=== PATIENT | female | born 1940 | race Caucasian/White ===

== ENCOUNTER 2021-12-06 19:42 | Inpatient (IN) | payer MEDICARE, MEDICAID ==
[~2021-12-06] VITALS: Ht 157.5 cm; Wt 111.4 kg
[2021-12-06] MEDS ORDERED: morphine 4 MG/ML inj SYRINge IV ONE (21:30)
[2021-12-06] MEDS ORDERED: EXEN2AUT SQ (22:31)
[2021-12-06] MEDS ORDERED: OMEP20CA16 PO (22:31)
[2021-12-06] MEDS ORDERED: SITA100T11 PO (22:31)
[2021-12-06] MEDS ORDERED: SIMV40TA PO (22:31)
[2021-12-06] MEDS ORDERED: MELA3TAB39 PO (22:31)
[2021-12-06] MEDS ORDERED: DULO-31 PO (22:31)
[2021-12-06] MEDS ORDERED: FURO40TA4 PO (22:31)
[2021-12-06] MEDS ORDERED: POTA10TA37 PO (22:31)
[2021-12-06] MEDS ORDERED: VALS80TA32 PO (22:31)
[2021-12-06] MEDS ORDERED: CARV25TA2 PO (22:31)
[2021-12-06] MEDS ORDERED: GABA-530 PO (22:31)
[2021-12-06] MEDS ORDERED: INSU100I31 SQ (22:31)
--- NOTE | 2021-12-06 22:44 | NUR ---
Spoke to son, AJ, and updates given. Phone number is [phone].
[2021-12-06] MEDS ORDERED: dextrose ORAL solution 15 GM/59 ML bottle PO PRN ×2 (22:55)
[2021-12-06] MEDS ORDERED: MESSAGE TO PHARMACY PO ONE (22:55)
[2021-12-06] MEDS ORDERED: glucagon, human recombinant 1mg kit SUBCUT PRN (22:55)
[2021-12-06] MEDS ORDERED: dextrose 50%-water 50ml dispensing syringe IV PRN ×2 (22:55)
[2021-12-06] MEDS ORDERED: magnesium hydroxide 30ml (MOM) UD suspension PO PRN (23:30)
[2021-12-06] MEDS ORDERED: bisacodyl 10mg suppository rectal RC PRN (23:30)
[2021-12-06] MEDS ORDERED: diphenhydrAMINE 50 mg/ml inj IV PRN (23:30)
[2021-12-06] MEDS ORDERED: acetaminophen 650mg rectal suppository RC PRN (23:30)
[2021-12-06] MEDS ORDERED: ondansetron/PF 4mg/2ml inj IV PRN (23:30)
[2021-12-06] MEDS ORDERED: mag hydrox/Alum hydrox/simeth 30ml oral suspension PO PRN (23:30)
[2021-12-06] MEDS ORDERED: Melatonin 3mg tablet PO PRN (23:30)
[2021-12-06] MEDS ORDERED: ondansetron 4mg rapidly disintigrating tab PO PRN (23:30)
[2021-12-06] MEDS ORDERED: diphenhydrAMINE 25mg capsule PO PRN (23:30)
[2021-12-06] MEDS ORDERED: acetaminophen 325mg tablet PO PRN ×2 (23:30)
[2021-12-06 23:50] LABS: BASOPHILS % (AUTO) 0.2 % (0-1); EOSINOPHILS % (AUTO) 0.2 % (0-6); HEMATOCRIT 43.3 % (35.0-45.0); LYMPHOCYTES # (AUTO) 2.5 X10'3 (1.1-4.8); LYMPHOCYTES % (AUTO) 13.5 % (21-51); MEAN CORPUSCULAR HEMOGLOBIN 27.8 PG (27.0-31.0); MEAN CORPUSCULAR HGB CONC 32.3 g/dL (33.0-36.5); MEAN CORPUSCULAR VOLUME 86.2 FL (78-98); MEAN PLATELET VOLUME 7.9 FL (7.4-10.4); MONOCYTES # (AUTO) 1.5 X10'3 (0-0.9); MONOCYTES % (AUTO) 8.5 % (2-12); NEUTROPHILS # (AUTO) 14.2 X10'3 (1.8-7.7); NEUTROPHILS % (AUTO) 77.6 % (42-75); PLATELET COUNT 162 X10'3 (140-440); RED BLOOD COUNT 5.03 X10'6 (4.20-5.60); RED CELL DISTRIBUTION WIDTH 14.4 % (11.5-14.5); WHITE BLOOD COUNT 18.3 X10'3 (4.5-11.0)
[2021-12-06 23:53] LABS: APTT 27 SECONDS (22-32)
[2021-12-06] MEDS: normal saline 1000ml 1,000 ML IV SCH (23:59)
[2021-12-07] VITALS (7 sets, daily range): BP systolic 91–151; BP diastolic 43–71
[2021-12-07 00:04] LABS: MAGNESIUM 1.8 MG/DL (1.5-2.4); PHOSPHORUS 4.5 MG/DL (2.3-4.5)
--- NOTE | 2021-12-07 00:35 | NUR ---
PT ARRIVED FROM ER. PT HAS BEEN ORIENTED TO THE ROOM. VSS. RECEIVED RERP Addendum: 12/07/21 at 0636 by Cassie Singh RN RECEIVED REPORT FROM PEDRO ADORNO PRIOR TO PT'S ARRIVAL. ILL KEEP HER NPO IN CASE OF SURGERY.
--- NOTE | 2021-12-07 00:59 | NUR ---
Tried to contact son AJ to notify of admit and room. Son did not answer.
[2021-12-07] MEDS: heparin, porcine 5000 units/ml vial SQ SCH ×4 (01:46→23:58)
--- NOTE | 2021-12-07 06:12 | NUR ---
Problems reprioritized. Patient report given, questions answered & plan of care reviewed with PEDRO MCGUIRE.
[2021-12-07 06:48] LABS: BASOPHILS # (AUTO) 0.1 X10'3 (0-0.2); BASOPHILS % (AUTO) 0.3 % (0-1); EOSINOPHILS % (AUTO) 0.2 % (0-6); HEMATOCRIT 39.6 % (35.0-45.0); HEMOGLOBIN 12.8 g/dl (12.0-16.0); LYMPHOCYTES # (AUTO) 2.5 X10'3 (1.1-4.8); LYMPHOCYTES % (AUTO) 14.3 % (21-51); MEAN CORPUSCULAR HEMOGLOBIN 28.1 PG (27.0-31.0); MEAN CORPUSCULAR HGB CONC 32.4 g/dL (33.0-36.5); MEAN CORPUSCULAR VOLUME 86.8 FL (78-98); MEAN PLATELET VOLUME 7.9 FL (7.4-10.4); MONOCYTES # (AUTO) 1.5 X10'3 (0-0.9); MONOCYTES % (AUTO) 8.6 % (2-12); NEUTROPHILS # (AUTO) 13.5 X10'3 (1.8-7.7); NEUTROPHILS % (AUTO) 76.6 % (42-75); PLATELET COUNT 160 X10'3 (140-440); RED BLOOD COUNT 4.56 X10'6 (4.20-5.60); RED CELL DISTRIBUTION WIDTH 14.3 % (11.5-14.5); WHITE BLOOD COUNT 17.6 X10'3 (4.5-11.0)
[2021-12-07 07:27] LABS: ALANINE AMINOTRANSFERASE 16 U/L (12-78); ALBUMIN 2.6 G/DL (3.4-5.0); ALBUMIN/GLOBULIN RATIO 0.8 (1.1-1.5); ALKALINE PHOSPHATASE 72 IU/L (46-116); ANION GAP 5 (8-16); ASPARTATE AMINO TRANSFERASE 14 U/L (10-37); BILIRUBIN,TOTAL 0.4 MG/DL (0.1-1.0); BLOOD UREA NITROGEN 24 MG/DL (7-18); BUN/CREATININE RATIO 18.5 (6.6-38.0); CALCIUM 8.3 MG/DL (8.5-10.1); CHLORIDE 107 MMOL/L (99-107); CHOL/HDL RATIO 2.8 (0.00-4.99); CHOLESTEROL 114 MG/DL (0-200); GLUCOSE 151 MG/DL (70-104); HDL CHOLESTEROL 41 MG/DL (35-60); LDL CHOLESTEROL 50 MG/DL (50-100); POTASSIUM 4.7 MMOL/L (3.5-5.1); SODIUM 143 MMOL/L (135-145); TOTAL CARBON DIOXIDE 30.7 MMOL/L (24-32); TOTAL PROTEIN 5.7 G/DL (6.4-8.2); TRIGLYCERIDES 103 MG/DL (20-135); eGFR 40 ML/MIN
[2021-12-07] MEDS: pantoprazole 40mg Tablet.DR PO SCH (07:55)
[2021-12-07] MEDS: docusate sod 100mg capsule PO SCH ×2 (07:55→20:00)
[2021-12-07] MEDS: duloxetine 30mg CAPSULE.DR PO SCH (07:56)
[2021-12-07] MEDS: carVEDilol 12.5mg tablet PO SCH ×2 (07:56→19:38)
[2021-12-07] MEDS: gabapentin 100mg capsule PO SCH ×2 (07:56→19:38)
[2021-12-07] MEDS: morphine 4 MG/ML inj SYRINge IV PRN ×2 (09:12→19:38)
[2021-12-07] MEDS: CefTRIAXone/D5W-Rocephin 1gm 50 ML IV SCH (09:50)
[2021-12-07] MEDS: insulin Lispro (HumaLOG) vial - multi-dose SQ SCH ×2 (12:45→19:18)
--- NOTE | 2021-12-07 14:32 | NUR ---
Diabetes consult: Noted pt w/ hx of T2DM, A1c 8.7. Written DM ed w/ RD contact info placed in pt chart. Addendum: 12/07/21 at [address] Amended: Links added.
[2021-12-07 15:51] LABS: CLARITY,URINE SLIGHTLY CLOUDY (Clear); COLOR,URINE YELLOW (Yellow); GLUCOSE, URINE NEGATIVE (Neg); KETONES,URINE NEGATIVE (Neg); LEUKOCYTE ESTERASE ,URINE NEGATIVE (Neg); NITRITES, URINE NEGATIVE (Neg); OCCULT BLOOD,URINE MODERATE (Neg); PROTEIN,URINE TRACE mg/dl (Neg); UROBILINOGEN,URINE 0.2 E.U/dL (0.2-1.0)
[2021-12-07 15:55] LABS: UA COLLECTION TYPE NON-SPECIFIED
[2021-12-07 15:57] LABS: WBC,URINE 50-100 /HPF (0-4)
[2021-12-07 15:58] LABS: BACTERIA,URINE 3+ /HPF (Neg); CELLULAR CAST 0-4 /LPF (NEGATIVE); MUCUS STRANDS NONE SEEN /LPF (Neg)
[2021-12-07 15:59] LABS: FINE GRANULAR CAST 0-3 /LPF (NEGATIVE)
[2021-12-07 16:01] LABS: SQUAMOUS EPITHELIAL CELL,UR MANY /LPF (FEW)
--- NOTE | 2021-12-07 18:15 | NUR ---
Patient in room PCU 3013A. I have received report from PEDRO Craven and had the opportunity to ask questions and assume patient care.
[2021-12-07] MEDS: normal saline 1000ml 1,000 ML IV SCH (19:37)
[2021-12-07] MEDS ORDERED: atorvastatin 20mg tablet PO SCH (21:00)
[2021-12-07] MEDS: temazepam 15mg capsule PO PRN (21:11)
[2021-12-07] MEDS: atorvastatin 20mg tablet PO SCH (21:11)
[2021-12-07] MEDS: insulin glargine (Lantus) pen - multi-dose SQ SCH (21:13)
[2021-12-08] VITALS (17 sets, daily range): BP systolic 85–133; BP diastolic 24–97
[2021-12-08] MEDS: normal saline 1000ml 1,000 ML IV SCH ×5 (04:05→20:48)
--- NOTE | 2021-12-08 06:26 | NUR ---
Problems reprioritized. Patient report given, questions answered & plan of care reviewed with PEDRO Ji.
[2021-12-08] MEDS: pantoprazole 40mg Tablet.DR PO SCH (07:30)
[2021-12-08 07:48] LABS: BASOPHILS # (AUTO) 0.1 X10'3 (0-0.2); BASOPHILS % (AUTO) 0.5 % (0-1); EOSINOPHILS # (AUTO) 0.2 X10'3 (0-0.9); EOSINOPHILS % (AUTO) 1.4 % (0-6); HEMATOCRIT 35.3 % (35.0-45.0); HEMOGLOBIN 11.4 g/dl (12.0-16.0); LYMPHOCYTES # (AUTO) 2.7 X10'3 (1.1-4.8); LYMPHOCYTES % (AUTO) 19.3 % (21-51); MEAN CORPUSCULAR HEMOGLOBIN 27.9 PG (27.0-31.0); MEAN CORPUSCULAR HGB CONC 32.2 g/dL (33.0-36.5); MEAN CORPUSCULAR VOLUME 86.8 FL (78-98); MEAN PLATELET VOLUME 7.7 FL (7.4-10.4); MONOCYTES # (AUTO) 1.6 X10'3 (0-0.9); MONOCYTES % (AUTO) 11.4 % (2-12); NEUTROPHILS # (AUTO) 9.3 X10'3 (1.8-7.7); NEUTROPHILS % (AUTO) 67.4 % (42-75); PLATELET COUNT 144 X10'3 (140-440); RED BLOOD COUNT 4.07 X10'6 (4.20-5.60); RED CELL DISTRIBUTION WIDTH 14.4 % (11.5-14.5); WHITE BLOOD COUNT 13.8 X10'3 (4.5-11.0)
[2021-12-08] MEDS: duloxetine 30mg CAPSULE.DR PO SCH (08:00)
[2021-12-08] MEDS: gabapentin 100mg capsule PO SCH ×2 (08:00→19:17)
[2021-12-08] MEDS: docusate sod 100mg capsule PO SCH ×2 (08:00→19:17)
[2021-12-08] MEDS: heparin, porcine 5000 units/ml vial SQ SCH ×3 (08:00→18:15)
[2021-12-08 08:40] LABS: ALANINE AMINOTRANSFERASE 12 U/L (12-78); ALBUMIN 2.2 G/DL (3.4-5.0); ALBUMIN/GLOBULIN RATIO 0.8 (1.1-1.5); ALKALINE PHOSPHATASE 67 IU/L (46-116); ANION GAP 9 (8-16); ASPARTATE AMINO TRANSFERASE 18 U/L (10-37); BILIRUBIN,TOTAL 0.3 MG/DL (0.1-1.0); BLOOD UREA NITROGEN 34 MG/DL (7-18); BUN/CREATININE RATIO 16.9 (6.6-38.0); CALCIUM 8.1 MG/DL (8.5-10.1); CHLORIDE 102 MMOL/L (99-107); CREATININE 2.01 MG/DL (0.40-0.90); GLUCOSE 138 MG/DL (70-104); SODIUM 136 MMOL/L (135-145); TOTAL CARBON DIOXIDE 24.8 MMOL/L (24-32); TOTAL PROTEIN 4.9 G/DL (6.4-8.2); eGFR 24 ML/MIN
[2021-12-08 08:45] LABS: POTASSIUM 4.7 MMOL/L (3.5-5.1)
[2021-12-08] MEDS ORDERED: normal saline 500ml IV soln 500 ML IV ONE (08:55)
[2021-12-08] MEDS ORDERED: ringers solution, lacted 1,000 ML IV SCH (09:15)
[2021-12-08] MEDS ORDERED: meperidine/PF 25mg/ml syringe IV PRN ×3 (09:15)
[2021-12-08] MEDS ORDERED: proCHLORperazine 10 MG/2 ml inj IV PRN (09:15)
[2021-12-08] MEDS ORDERED: ondansetron/PF 4mg/2ml inj IV PRN (09:15)
[2021-12-08] MEDS: CefTRIAXone/D5W-Rocephin 1gm 50 ML IV SCH (09:31)
[2021-12-08] MEDS ORDERED: BUPIVAcaine 0.5% W/EPI /PF 10ml vial ONE (12:11)
--- NOTE | 2021-12-08 13:00 | NUR ---
fs done bs 148. pt complains of a pain of 4 on 1-10 [address] on right hip[address] Dr Alfaro at bedside, speaking to pt. Dr. Ellison also at bedside, IV tubing changed to anesthesias preference with stop cock and extension, changed at the hub. Iv retaped. Pt remains on cardiac , BP, and pulse ox monitor
--- NOTE | 2021-12-08 13:33 | NUR ---
pt transported to surgery via hospital bed with RN and dilcia.
[2021-12-08] MEDS ORDERED: MIDAZolam 1 MG/ML 5ML VIAL ONE (13:40)
[2021-12-08] MEDS ORDERED: fentaNYL/PF 50MCG/1 ML 2ML syringe ONE (13:40)
[2021-12-08] MEDS ORDERED: ceFAZolin 1000mg inj ONE ×3 (14:09)
[2021-12-08] MEDS ORDERED: tranexamic acid 1gm/0.7% sal. 100 ML IV ONE (14:20)
--- NOTE | 2021-12-08 15:03 | NUR ---
Received from OR via SURGICAL BED, accompanied by Anesthesiologist LELA and report given by Anesthesiolgist. THREE DRESSINGS, RIGHT HIP, CDI X 3, +DP PRESENT AND TOES ARE PWD. MANDAS ROBERT, 20G PIV VISHNUE RUNNING LR AT 100, 3 L NASAL CANNULA 98%, NO COMPLAINTS AT THIS TIME Addendum: 12/08/21 at 1521 by Dc Hill RN, RN Amended: Links added.
[2021-12-08] MEDS: morphine 4 MG/ML inj SYRINge IV PRN ×2 (18:14→22:53)
[2021-12-08] MEDS: ceFAZolin/D5W- 1GM premix 50 ML IV SCH (18:15)
--- NOTE | 2021-12-08 18:30 | NUR ---
Miss Hardy has been assessed as indicated. She has successfully returned from Or at 1605 after having a yeimy placed in her right hip. She left the floor at 1235 with OR staff transporting her. She has been successfully treated for pain and nausea. Her dinner tray has been saved. She is resting at this time. She has no s/s of distress or discomfort at this time. the SCD on her right leg has been opened at her request.
[2021-12-08] MEDS: carVEDilol 12.5mg tablet PO SCH (19:17)
[2021-12-08] MEDS: temazepam 15mg capsule PO PRN (19:17)
[2021-12-08] MEDS: atorvastatin 20mg tablet PO SCH (20:27)
[2021-12-08] MEDS: insulin glargine (Lantus) pen - multi-dose SQ SCH (22:02)
[2021-12-09] MEDS: heparin, porcine 5000 units/ml vial SQ SCH ×2 (00:29→08:11)
[2021-12-09] MEDS: ceFAZolin/D5W- 1GM premix 50 ML IV SCH (00:29)
[2021-12-09 02:00] VITALS: BP 123/50
[2021-12-09] MEDS: normal saline 1000ml 1,000 ML IV SCH ×3 (04:46→20:37)
[2021-12-09 06:00] VITALS: BP 101/44
[2021-12-09 06:09] LABS: BASOPHILS # (AUTO) 0.1 X10'3 (0-0.2); BASOPHILS % (AUTO) 0.5 % (0-1); EOSINOPHILS # (AUTO) 0.2 X10'3 (0-0.9); EOSINOPHILS % (AUTO) 1.7 % (0-6); HEMATOCRIT 33.6 % (35.0-45.0); HEMOGLOBIN 11.1 g/dl (12.0-16.0); LYMPHOCYTES # (AUTO) 1.9 X10'3 (1.1-4.8); LYMPHOCYTES % (AUTO) 18.4 % (21-51); MEAN CORPUSCULAR HEMOGLOBIN 28.8 PG (27.0-31.0); MEAN CORPUSCULAR HGB CONC 32.9 g/dL (33.0-36.5); MEAN CORPUSCULAR VOLUME 87.3 FL (78-98); MEAN PLATELET VOLUME 7.9 FL (7.4-10.4); MONOCYTES # (AUTO) 1.4 X10'3 (0-0.9); MONOCYTES % (AUTO) 13.3 % (2-12); NEUTROPHILS # (AUTO) 6.7 X10'3 (1.8-7.7); NEUTROPHILS % (AUTO) 66.1 % (42-75); PLATELET COUNT 153 X10'3 (140-440); RED BLOOD COUNT 3.85 X10'6 (4.20-5.60); RED CELL DISTRIBUTION WIDTH 13.9 % (11.5-14.5); WHITE BLOOD COUNT 10.2 X10'3 (4.5-11.0)
[2021-12-09 06:28] LABS: ALANINE AMINOTRANSFERASE 12 U/L (12-78); ALBUMIN/GLOBULIN RATIO 0.7 (1.1-1.5); ALKALINE PHOSPHATASE 64 IU/L (46-116); ANION GAP 10 (8-16); ASPARTATE AMINO TRANSFERASE 14 U/L (10-37); BILIRUBIN,TOTAL 0.2 MG/DL (0.1-1.0); BLOOD UREA NITROGEN 29 MG/DL (7-18); CHLORIDE 106 MMOL/L (99-107); CREATININE 1.32 MG/DL (0.40-0.90); GLUCOSE 130 MG/DL (70-104); POTASSIUM 4.5 MMOL/L (3.5-5.1); SODIUM 140 MMOL/L (135-145); TOTAL CARBON DIOXIDE 24.5 MMOL/L (24-32); TOTAL PROTEIN 4.8 G/DL (6.4-8.2); eGFR 39 ML/MIN
--- NOTE | 2021-12-09 06:30 | NUR ---
Problems reprioritized. Patient report given, questions answered & plan of care reviewed with Nhung VASQUEZ .
[2021-12-09] MEDS: duloxetine 30mg CAPSULE.DR PO SCH (08:07)
[2021-12-09] MEDS: docusate sod 100mg capsule PO SCH ×2 (08:08→19:35)
[2021-12-09] MEDS: gabapentin 100mg capsule PO SCH ×2 (08:08→19:34)
[2021-12-09] MEDS: carVEDilol 12.5mg tablet PO SCH ×2 (08:08→19:34)
[2021-12-09] MEDS: pantoprazole 40mg Tablet.DR PO SCH (08:08)
[2021-12-09] MEDS: CefTRIAXone/D5W-Rocephin 1gm 50 ML IV SCH (08:17)
[2021-12-09] MEDS: morphine 4 MG/ML inj SYRINge IV PRN ×2 (08:26→19:34)
[2021-12-09 11:00] VITALS: BP 113/47
[2021-12-09 15:00] VITALS: BP 159/30
--- NOTE | 2021-12-09 17:55 | NUR ---
Miss Clary Hardy has been assessed as indicted. She has been vert sleepy today. She does arouse easily. It has has been difficult to get her to eat. She states that she will eat dinner. She has a Fink with clear yellow urine in adequate amounts. She tolerates IVF well. the surgical site to the Right hip is CDI and supple. she will be seen by PT tomorrow. she is presently resting quietly
[2021-12-09 18:00] VITALS: BP 120/36
--- NOTE | 2021-12-09 18:21 | NUR ---
Problems reprioritized. Patient report given, questions answered & plan of care reviewed with DIANN.
[2021-12-09] MEDS: temazepam 15mg capsule PO PRN (19:33)
[2021-12-09] MEDS ORDERED: enoxaparin 40mg/0.4ml syringe SUBCUT SCH (20:00)
[2021-12-09] MEDS: atorvastatin 20mg tablet PO SCH (20:34)
[2021-12-09 22:00] VITALS: BP 123/56
[2021-12-09] MEDS: insulin glargine (Lantus) pen - multi-dose SQ SCH (23:03)
[2021-12-10] MEDS: morphine 4 MG/ML inj SYRINge IV PRN ×2 (00:31→13:38)
[2021-12-10 02:00] VITALS: BP 136/78
[2021-12-10] MEDS: normal saline 1000ml 1,000 ML IV SCH ×2 (05:19→12:48)
[2021-12-10 05:55] LABS: BASOPHILS % (AUTO) 0.5 % (0-1); EOSINOPHILS # (AUTO) 0.3 X10'3 (0-0.9); EOSINOPHILS % (AUTO) 3.1 % (0-6); HEMATOCRIT 31.3 % (35.0-45.0); HEMOGLOBIN 10.3 g/dl (12.0-16.0); LYMPHOCYTES % (AUTO) 22.2 % (21-51); MEAN CORPUSCULAR HEMOGLOBIN 28.2 PG (27.0-31.0); MEAN CORPUSCULAR HGB CONC 32.8 g/dL (33.0-36.5); MEAN PLATELET VOLUME 7.3 FL (7.4-10.4); MONOCYTES # (AUTO) 1.3 X10'3 (0-0.9); NEUTROPHILS # (AUTO) 5.4 X10'3 (1.8-7.7); NEUTROPHILS % (AUTO) 60.2 % (42-75); PLATELET COUNT 169 X10'3 (140-440); RED BLOOD COUNT 3.64 X10'6 (4.20-5.60); RED CELL DISTRIBUTION WIDTH 13.9 % (11.5-14.5)
[2021-12-10 06:00] VITALS: BP 128/72
[2021-12-10 06:45] LABS: ALANINE AMINOTRANSFERASE 11 U/L (12-78); ALBUMIN 1.9 G/DL (3.4-5.0); ALBUMIN/GLOBULIN RATIO 0.7 (1.1-1.5); ALKALINE PHOSPHATASE 67 IU/L (46-116); ANION GAP 7 (8-16); ASPARTATE AMINO TRANSFERASE 14 U/L (10-37); BILIRUBIN,TOTAL 0.4 MG/DL (0.1-1.0); BLOOD UREA NITROGEN 23 MG/DL (7-18); BUN/CREATININE RATIO 22.5 (6.6-38.0); CALCIUM 7.9 MG/DL (8.5-10.1); CHLORIDE 110 MMOL/L (99-107); CREATININE 1.02 MG/DL (0.40-0.90); GLUCOSE 133 MG/DL (70-104); POTASSIUM 4.5 MMOL/L (3.5-5.1); SODIUM 141 MMOL/L (135-145); TOTAL CARBON DIOXIDE 24.4 MMOL/L (24-32); TOTAL PROTEIN 4.5 G/DL (6.4-8.2); eGFR 52 ML/MIN
[2021-12-10] MEDS: pantoprazole 40mg Tablet.DR PO SCH (07:51)
[2021-12-10] MEDS: CefTRIAXone/D5W-Rocephin 1gm 50 ML IV SCH (07:53)
[2021-12-10] MEDS: docusate sod 100mg capsule PO SCH (07:54)
[2021-12-10] MEDS: duloxetine 30mg CAPSULE.DR PO SCH (07:55)
[2021-12-10] MEDS: carVEDilol 12.5mg tablet PO SCH (07:55)
[2021-12-10] MEDS: gabapentin 100mg capsule PO SCH (07:56)
[2021-12-10] MEDS ORDERED: enoxaparin 40mg/0.4ml syringe SUBCUT SCH (08:00)
== END 2021-12-10 17:24 | DRG 480 ==
LOC: ER 19:43 → PCU 3S 23:36 → EDBEDREQSVC 23:53
PROVIDERS: ADMIT Family Medicine; ATTEND Family Medicine
PROC: 0QH606Z Insertion of Intramedullary Internal Fixation Device into Right Upper Femur, Open Approach (ICD-10-PCS; principal; 2021-12-08 13:25)
DX: S72.141A Displaced intertrochanteric fracture of right femur, initial encounter for closed fracture (principal); I50.33 Acute on chronic diastolic (congestive) heart failure; N17.0 Acute kidney failure with tubular necrosis; I13.0 Hypertensive heart and chronic kidney disease with heart failure and stage 1 through stage 4 chronic kidney disease, or unspecified chronic kidney disease; Z68.41 Body mass index [BMI] 40.0-44.9, adult; Z20.822 Contact with and (suspected) exposure to COVID-19; J44.9 Chronic obstructive pulmonary disease, unspecified; E66.01 Morbid (severe) obesity due to excess calories; E11.22 Type 2 diabetes mellitus with diabetic chronic kidney disease; W18.30XA Fall on same level, unspecified, initial encounter; E11.65 Type 2 diabetes mellitus with hyperglycemia; E78.00 Pure hypercholesterolemia, unspecified; M10.9 Gout, unspecified; W18.39XA Other fall on same level, initial encounter; E78.5 Hyperlipidemia, unspecified; N18.9 Chronic kidney disease, unspecified; D72.829 Elevated white blood cell count, unspecified; R09.02 Hypoxemia; F32.A Depression, unspecified; G89.29 Other chronic pain; K21.9 Gastro-esophageal reflux disease without esophagitis; M19.90 Unspecified osteoarthritis, unspecified site; Z99.81 Dependence on supplemental oxygen; Z88.0 Allergy status to penicillin; Z88.2 Allergy status to sulfonamides; Z88.5 Allergy status to narcotic agent; Z88.8 Allergy status to other drugs, medicaments and biological substances; Y93.89 Activity, other specified; Y92.89 Other specified places as the place of occurrence of the external cause; Y99.8 Other external cause status; Z79.899 Other long term (current) drug therapy
CPT/HCPCS: 36415; 71045; 73502; 73551; 73700; 76000; 80053; 80061; 81001; 82948; 83036; 83605; 83735; 83880; 84100; 84443; 85025; 85610; 85730; 87040; 87081; 87635; 93005; 93306; 96374; 97110; 97161; 97530; 99285; A4215; A4618; A6222; A6258; A6449; A7000; C1713; G0378; J0690; J0696; J1644; J1650; J1815; J2250; J2270; J2405; J3010; J7030; J7040; J7120; S0020